=== PATIENT | male | born 1955 | race Caucasian/White ===

== ENCOUNTER 2024-02-05 12:20 | Emergency (ER) | payer OTHER, SELFPAY ==
[2024-02-05 12:22] VITALS: BP 135/80
[2024-02-05 12:56] VITALS: BP 145/91
[2024-02-05 13:00] VITALS: BP 138/73
--- NOTE | 2024-02-05 13:04 | ED.GENMED ---
History of Present Illness
General
Chief Complaint: Dizziness
Source: patient and family
Exam Limitations: none
Time Seen by Provider: 02/05/24 12:49
Nursing documentation reviewed up to this point in time: agreed with
Travel History
Have you had any contact with someone who has COVID-19?: No
Do you have any symptoms of coronavirus? Fever > 100 degrees, chills, cough, shortness of breath, sore throat, loss of taste or smell, muscle aches, or headache?: No
History of Present Illness
History of Present Illness:
Patient to ED with complaint of dizziness, head pain, vomiting, intermittent CP. Symptoms started on wednesday. No prior history of same. Denies any abdominal pain, fever/chills, diarrhea. Brought to ED by family for eval
Past History
Past History
ED Past Medical History: CAD, HTN, Hypercholesterolemia and NIDDM
ED Past Surgical History: None
Social History
Tobacco: Non-smoker
Alcohol: Occasional
Personal:
Living: with family
Employment: Employed
Family History
Family History: Other (Noncontributory)
Review of Systems
Review of Systems
Allergies reviewed?: Yes
All Other Systems: ROS reviewed and negative except as documented in HPI and ROS
Constitutional: Reports fatigue
EENT: Reports no symptoms
Respiratory: Reports no symptoms
Cardiac: Reports chest pain
ABD/GI: Reports nausea and vomiting
: Reports no symptoms
Musculoskeletal: Reports no symptoms
Skin: Reports no symptoms
Neurological: Reports weakness
Psychiatric: Reports no symptoms
Phy Exam
General Physical Exam
General Presentation: well appearing and no apparent distress
General age: appears stated age
General Skin: warm and dry
General Habitus: normal
General Mental: alert
Cardiovascular Exam
Cardiovascular Exam: regular rate/rhythm and no edema
Pulmonary Exam
Pulmonary Exam: lungs clear
Gastrointestinal Exam
Gastrointestinal Exam: normal bowel sounds, non tender, soft and no organomegaly
Neurological Exam
Neurological Exam: alert, oriented x3, CN II-XII intact, no motor deficits, no sensory deficits, speech normal and normal gait
Musculoskeletal Exam
Musculoskeletal Exam: full ROM and neuro vasc intact
Skin Exam
Skin Exam: normal color, warm/dry and no rash
Psychiatric Exam
Psychiatric Exam: normal mood/affect
Course
Orders/Labs/Results
Orders:
Orders
02/05/24 12:25
EKG [Electrocardiogram (*1)] Urgent
Reason for Study: Chest Pain
EKG- Treatment ONCE
02/05/24 13:03
0.9% Sodium Chloride 500 ml [Nss] 500 ml IV BOLUS
Ondansetron Injectable [Zofran] 4 mg IV NOW STA
02/05/24 13:06
CT Head W/o Iv Contrast Urgent
Comment:
Reason For Exam: pain, vomiting
02/05/24 13:08
Complete Blood Count/With Diff Urgent
Comprehensive Metabolic Panel Urgent
Lipase Urgent
Troponin I Urgent
Abnormal Lab Results
02/05/24
13:08
RBC 4.06 L 10^6/uL
(4.70-6.10)
Hgb 12.7 L g/dL
(13.0-18.0)
Hct 35.8 L %
(39.0-52.0)
MCH 31.3 H pg
(27.0-31.0)
Absolute Lymphs (auto) 1.0 L 10^3/uL
(1.2-3.4)
Creatinine 0.6 L mg/dL
(0.7-1.3)
Glucose 165 H mg/dl
(70-99)
02/05/24 13:08
02/05/24 13:08
Vital Signs
Initial and Last Documented VS:
Initial Vital Signs
Temp Pulse Resp BP Pulse Ox
98.3 F 76 16 135/80 97
02/05/24 12:22 02/05/24 12:22 02/05/24 12:22 02/05/24 12:22 02/05/24 12:22
Last Documented Vital Signs
Temp Pulse Resp BP Pulse Ox
98.3 F 61 18 121/70 97
02/05/24 12:22 02/05/24 14:45 02/05/24 14:45 02/05/24 14:31 02/05/24 14:45
*Critical Care Note
Total Time (30-74mins, 75-104mins- exclusive of procedures): Not Applicable
Update Note
Update Note:
Improved with IVF and zofran. Will discharge home. Given instructions on s/s to return to ED and he is agreeable to plan.
ED Attending Note
-
Portions of this chart may have been created with voice recognition software.� Occasional wrong word or��sound alike� substitutions may have occurred due to the inherent limitations of voice recognition software.
Discharge Plan
Departure
Patient Disposition: Home (Routine Discharge)
Date of Disposition: 02/05/24
Time of Disposition: 14:33
Patient with high blood pressure during this ER visit?: No
Condition: Good
Covid-19: Not Applicable
Discharge Problem:
Vomiting, Acute dehydration
Instructions: Dehydration in children, Dizziness, Acute Nausea and Vomiting
Prescriptions:
New
ondansetron 4 mg tablet,disintegrating
4 mg PO Q8H PRN (Reason: nausea and vomiting) 3 Days Qty: 10 0RF
No Action
aspirin 81 MG tablet,delayed release (DR/EC)
81 mg PO Daily
metformin 1,000 MG tablet
1,000 mg PO BID
atorvastatin 40 MG tablet
40 mg PO QPM Qty: 30 1RF
Rx Instructions:
Increase atorvastatin to 40 mg (four 10 mg tablets or one 40 mg tablet) once a night
metoprolol succinate 25 MG tablet extended release 24 hr
25 mg PO BID Qty: 60 1RF
Rx Instructions:
Increase Toprol XL (metoprolol succinate) to 25 mg twice a day
fenofibrate nanocrystallized 145 MG tablet
145 mg PO DAILY Qty: 30 1RF
lisinopril 10 MG tablet
10 mg PO DAILY Qty: 30 1RF
Rx Instructions:
Increase lisinopril to 10 mg once a day
Referrals:
Nikki Renee CRNP [Family Provider] - Follow up in 2-3 days
Activity Restrictions/Additional Instructions:
Return to the emergency department immediately for any changes in/worsening of your symptoms.
Interventions
Interventions:
*Risk Screen - Suicide Last Done: 02/05/24 12:22
*General Assessment Last Done: 02/05/24 12:22
*Neglect/Abuse Screening Last Done: 02/05/24 12:22
ED- Fall Risk Assessment Last Done: 02/05/24 15:09
*Nursing Disposition Last Done: 02/05/24 15:09
ED- Neurological Assessment Last Done: 02/05/24 13:03
Discharge Date and Time
Discharge Date/Time: 02/05/24 15:10
Print Language: EMIRATI
[2024-02-05] MEDS: ZOFRAN 4 MG IV (13:07)
[2024-02-05] MEDS: NSS 500 IV (13:07)
[2024-02-05 13:24] LABS: % Basophils 0.2 % (0-2); % Eosinophils 0.4 % (0-6); % Immature Granulocytes 0.2 % (0-0.5); % Lymphocytes 20.7 % (20.5-51.1); % Monocytes 6.1 % (1.7-9.3); % Neutrophils 72.4 % (42.2-75.2); Absolute Monocytes 0.3 10^3/uL (0.1-0.6); Absolute Neutrophils 3.6 10^3/uL (1.4-6.5); Hematocrit 35.8 % (39.0-52.0); Hemoglobin 12.7 g/dL (13.0-18.0); Mean Corp Hgb Conc. 35.5 g/dL (33.0-37.0); Mean Corpuscular Hgb 31.3 pg (27.0-31.0); Mean Corpuscular Volume 88.2 fL (80.0-94.0); Mean Platelet Volume 8.5 fL (7.4-10.4); Nucleated Red Blood Cells % 0 % (-); Platelet Count 156 10^3/uL (130-400); Red Blood Cell Count 4.06 10^6/uL (4.70-6.10); Red Cell Dist. Width 12.5 % (11.5-14.5); White Blood Cell Count 4.9 10^3/uL (4.8-10.8)
[2024-02-05 13:35] LABS: ALT (SGPT) 31 U/L (0-50); AST (SGOT) 30 U/L (17-59); Albumin 4.9 g/dl (3.5-5.0); Alkaline Phosphatase 59 U/L (38-126); Blood Urea Nitrogen 14 mg/dl (9-20); Calcium 9.8 mg/dl (8.4-10.2); Carbon Dioxide 25 mmol/L (22-30); Chloride 104 mmol/L (98-107); Glucose 165 mg/dl (70-99); Lipase 79 U/L (23-300); Sodium 136 mmol/L (135-145); Total Bilirubin 0.5 mg/dl (0.2-1.3); Total Protein 7.3 g/dl (6.3-8.2); eGFR > 60.00
[2024-02-05 13:47] LABS: Troponin I < 0.012 ng/ml
[2024-02-05 14:31] VITALS: BP 121/70
== END 2024-02-05 15:10 | disposition home or self-care (01) ==
LOC: EMR 12:20
PROVIDERS: Nurse Practitioner; EMERGENCY PHYSICIAN Emergency Medicine; FAMILY PHYSICIAN Nurse Practitioner Family
DX: R11.10 Vomiting, unspecified (principal); E86.0 Dehydration
CPT/HCPCS: 99285; 96374; 96361; 70450; 80053; 83690; 84484; 85025; 93005

== ENCOUNTER 2024-12-09 18:22 | Emergency (ER) | payer OTHER, SELFPAY ==
[2024-12-09 18:27] VITALS: BP 147/81
[2024-12-09 19:47] VITALS: BMI 29.3
[2024-12-09 19:52] VITALS: BP 138/72
--- NOTE | 2024-12-09 20:24 | ED.GENMED ---
History of Present Illness
General
Chief Complaint: DVT/Possible Blood Clot
Source: patient and family
Exam Limitations: none
Time Seen by Provider: 12/09/24 19:42
Nursing documentation reviewed up to this point in time: agreed with
History of Present Illness
History of Present Illness:
69-year-old male with past ministry of diabetes, CAD hypertension hyperlipidemia presenting to the emergency department today with concerns of a abrupt sharp pain when he was picking up something off the ground earlier today in his calf. Ongoing
discomfort to the area since. Has not of some swelling to the calf region. Denies any chest pain shortness of breath nausea vomiting numbness weakness.
Past History
Past History
ED Past Medical History: CAD, HTN, Hypercholesterolemia and NIDDM
ED Past Surgical History: None
Social History
Tobacco: Non-smoker
Alcohol: Occasional
Personal:
Living: with family
Employment: Employed
Family History
Family History: Other (Noncontributory)
Review of Systems
Review of Systems
Allergies reviewed?: Yes
All Other Systems: ROS reviewed and negative except as documented in HPI and ROS
Phy Exam
Physical Exam
Physical Exam:
GENERAL: Alert , in no apparent distress
EYE: pupils equal and reactive
NECK: Supple, no significant adenopathy.
ENT: o/p clr, mmm.
CARDIAC: Regular rate and rhythm .
LUNGS: Clear breath sounds bilaterally, no acute respiratory distress, no wheezes/rales/rhonchi
ABDOMEN: Soft, without focal tenderness, no r/g, no cvat
NEUROLOGICAL: Alert and oriented, no focal neuro deficits
SKIN: Warm and dry, skin intact.
MUSCULOSKELETAL: Mild swelling surrounding the gastrocnemius pain made worse with dorsiflexion of the ankle and squeezing of the gastroc. Achilles intact., well perfused.
PSYCH: Normal and appropriate interaction.
Course
Orders/Labs/Results
Orders:
Orders
12/09/24 18:30
US Legs, Right [US Periph Venous LOWER Ext RT] Urgent
Comment:
Reason For Exam: pain in calf
Vital Signs
Initial and Last Documented VS:
Initial Vital Signs
Temp Pulse Resp BP Pulse Ox
98.1 F 87 20 147/81 98
12/09/24 18:27 12/09/24 18:27 12/09/24 18:27 12/09/24 18:27 12/09/24 18:27
Last Documented Vital Signs
Temp Pulse Resp BP Pulse Ox
98.1 F 87 18 138/72 95
12/09/24 18:27 12/09/24 19:52 12/09/24 20:02 12/09/24 19:52 12/09/24 19:52
MDM/Problems Addressed
MDM/Problems Addressed:
69-year-old male presenting to the emergency department today with concerns of calf discomfort. Fountain a pop in his calf when he was lifting earlier today. Pain mainly to the gastrocnemius and with stretching of the gastrocnemius. Patient with
likely muscle strain. He also did have an ultrasound that showed a superficial nonocclusive clot in the saphenous. No indication for anticoagulation at this point. Patient recommended for rehabbing of his likely muscle injury and close outpatient
follow-up for repeated ultrasound and monitoring. Return precautions given.
*Critical Care Note
Total Time (30-74mins, 75-104mins- exclusive of procedures): Not Applicable
ED Attending Note
-
Portions of this chart may have been created with voice recognition software.� Occasional wrong word or��sound alike� substitutions may have occurred due to the inherent limitations of voice recognition software.
Discharge Plan
Departure
Patient Disposition: Home (Routine Discharge)
Date of Disposition: 12/09/24
Time of Disposition: 20:31
Patient with high blood pressure during this ER visit?: No
Condition: Good
Covid-19: Not Applicable
Discharge Problem:
Superficial thrombosis of leg, Strain of right calf muscle
Instructions: Muscle Strain (DC), Deep Vein Thrombosis (Blood Clots in the Legs) (DC)
Prescriptions:
No Action
aspirin 81 MG tablet,delayed release (DR/EC)
81 mg PO Daily
metformin 1,000 MG tablet
1,000 mg PO BID
atorvastatin 40 MG tablet
40 mg PO QPM Qty: 30 1RF
Rx Instructions:
Increase atorvastatin to 40 mg (four 10 mg tablets or one 40 mg tablet) once a night
metoprolol succinate 25 MG tablet extended release 24 hr
25 mg PO BID Qty: 60 1RF
Rx Instructions:
Increase Toprol XL (metoprolol succinate) to 25 mg twice a day
fenofibrate nanocrystallized 145 MG tablet
145 mg PO DAILY Qty: 30 1RF
lisinopril 10 MG tablet
10 mg PO DAILY Qty: 30 1RF
Rx Instructions:
Increase lisinopril to 10 mg once a day
ondansetron 4 mg tablet,disintegrating
4 mg PO Q8H PRN (Reason: nausea and vomiting) 3 Days Qty: 10 0RF
Referrals:
Joseph Gutierrez MD [Active] - Follow up in 10 days
Activity Restrictions/Additional Instructions:
You came to the emergency department today with concerns of leg swelling. You are found to have a superficial blood clot but no DVT. Please use warm compresses to your leg and follow-up closely as an outpatient. Return for any worsening, new or
concerning symptoms.
Interventions
Interventions:
*Risk Screen - Suicide Last Done: 12/09/24 19:47
*General Assessment Last Done: 12/09/24 18:27
*Neglect/Abuse Screening Last Done: 12/09/24 19:47
*ED- Fall Risk Assessment Last Done: 12/09/24 19:47
*ED COVID-19 Vaccine History Last Done: 12/09/24 19:47
ED- Cardiac Assessment Last Done: 12/09/24 19:47
ED-Musculoskeletal Assessment Last Done: 12/09/24 19:47
ED- Pulmonary Assessment Last Done: 12/09/24 19:47
ED-Peripheral Vascular Assessment Last Done: 12/09/24 19:47
ED-Skin Assessment Last Done: 12/09/24 19:47
Discharge Date and Time
Print Language: MALTESE
== END 2024-12-09 20:41 | disposition home or self-care (01) ==
LOC: EMR 18:22
PROVIDERS: EMERGENCY PHYSICIAN Emergency Medicine; FAMILY PHYSICIAN Nurse Practitioner Family
DX: I82.811 Embolism and thrombosis of superficial veins of right lower extremity (principal); S86.111A Strain of other muscle(s) and tendon(s) of posterior muscle group at lower leg level, right leg, initial encounter; X58.XXXA Exposure to other specified factors, initial encounter; E11.9 Type 2 diabetes mellitus without complications; I25.10 Atherosclerotic heart disease of native coronary artery without angina pectoris; E78.00 Pure hypercholesterolemia, unspecified; I10 Essential (primary) hypertension
CPT/HCPCS: 99284; 93971

== ENCOUNTER 2024-12-14 17:33 | Emergency (ER) | payer OTHER, SELFPAY ==
[2024-12-14 17:34] VITALS: BP 174/96
--- NOTE | 2024-12-14 17:54 | ED.GENMED ---
History of Present Illness
<Lisandra Garcia PA-C - Last Filed: 12/14/24 20:30>
General
Chief Complaint: Swallowing Problem
Source: patient
Exam Limitations: none
Time Seen by Provider: 12/14/24 17:44
Nursing documentation reviewed up to this point in time: agreed with
History of Present Illness
History of Present Illness:
This is a 69-year-old male past medical history of coronary disease, hypertension, hyperlipidemia presents emergency department today with concerns of globus sensation in his throat. Patient reports that around 45 minutes ago, he was eating a
sandwich when he went to swallow and felt a piece of food get stuck in his throat. Patient reports that he tried to take another bite and subsequently had some gagging and vomiting mixed with specs of blood. He also has throat pain. He denies chest
pain, shortness of breath, abdominal pain. He denies history of cart attendant illness. He does not follow with a GI doctor. He denies any shortness of breath.
Past History
<Lisandra Garcia PA-C - Last Filed: 12/14/24 20:30>
Past History
ED Past Medical History: CAD, HTN, Hypercholesterolemia and NIDDM
ED Past Surgical History: None
Social History
Tobacco: Non-smoker
Alcohol: Occasional
Personal:
Living: with family
Employment: Employed
Family History
Family History: Other (Noncontributory)
Review of Systems
<Lisandra Garcia PA-C - Last Filed: 12/14/24 20:30>
Review of Systems
All Other Systems: ROS reviewed and negative except as documented in HPI and ROS
Phy Exam
<Lisandra Garcia PA-C - Last Filed: 12/14/24 20:30>
Physical Exam
Physical Exam:
General: Patient is well appearing and in no acute distress; non-toxic
Skin: Warm and dry, no rashes or lesions
Head: Normocephalic, atraumatic
Eyes: Sclera non-icteric. EOMs intact.
Throat: Uvula midline, no pharyngeal erythema
Neck: No cervical lymphadenopathy
Cardiac: Regular rate and rhythm, no murmurs, no tenderness palpation of the external chest wall
Pulm: Normal respiratory effort, no wheezes, rales, or rhonchi
Abdomen: No abdominal tenderness to palpation, no epigastric tenderness
Neuro: CN II-XII intact, no focal neurologic deficits.
Psychiatric: Appropriate mood and affect.
Course
<Lisandra Garcia PA-C - Last Filed: 12/14/24 20:30>
Orders/Labs/Results
Orders:
Orders
12/14/24 18:01
Complete Blood Count/With Diff Urgent
Comprehensive Metabolic Panel Urgent
12/14/24 18:02
Glucagon [GlucaGen] 1 mg Sterile Water [Sterile Water For Injection] 0 ml Syringe [Syringe Non-Pump] 0 ml IV NOW
12/14/24 18:09
Glucagon [GlucaGen] 1 mg IV NOW STA
12/14/24 18:37
Glucagon [GlucaGen] 1 mg IV NOW STA
12/14/24 18:58
Mag Hydrox/Al Hydrox/Simeth [Maalox] 30 ml Phenobarb/Hyoscy/Atropine/Scop [] 10 ml PO NOW
12/14/24 19:06
Mag Hydrox/Al Hydrox/Simeth [Maalox] 30 ml .ROUTE .STK-MED ONE
Phenobarb/Hyoscy/Atropine/Scop [] 10 ml .ROUTE .STK-MED ONE
Abnormal Lab Results
12/14/24
18:01
RBC 4.02 L 10^6/uL
(4.70-6.10)
Hgb 12.7 L g/dL
(13.0-18.0)
Hct 36.6 L %
(39.0-52.0)
MCH 31.6 H pg
(27.0-31.0)
Glucose 151 H mg/dl
(70-99)
Albumin 5.2 H g/dl
(3.5-5.0)
12/14/24 18:01
12/14/24 18:01
Vital Signs
Initial and Last Documented VS:
Initial Vital Signs
Temp Pulse Resp BP Pulse Ox
98.2 F 102 18 174/96 95
12/14/24 17:34 12/14/24 17:34 12/14/24 17:34 12/14/24 17:34 12/14/24 17:34
Last Documented Vital Signs
Temp Pulse Resp BP Pulse Ox
98.2 F 102 18 144/86 96
12/14/24 17:34 12/14/24 17:34 12/14/24 17:34 12/14/24 18:00 12/14/24 19:00
<Amparo Robison MD - Last Filed: 12/14/24 18:51>
Orders/Labs/Results
Orders:
Orders
12/14/24 18:01
Complete Blood Count/With Diff Urgent
Comprehensive Metabolic Panel Urgent
12/14/24 18:02
Glucagon [GlucaGen] 1 mg Sterile Water [Sterile Water For Injection] 0 ml Syringe [Syringe Non-Pump] 0 ml IV NOW
12/14/24 18:09
Glucagon [GlucaGen] 1 mg IV NOW STA
12/14/24 18:37
Glucagon [GlucaGen] 1 mg IV NOW STA
12/14/24 18:58
Mag Hydrox/Al Hydrox/Simeth [Maalox] 30 ml Phenobarb/Hyoscy/Atropine/Scop [] 10 ml PO NOW
12/14/24 19:06
Mag Hydrox/Al Hydrox/Simeth [Maalox] 30 ml .ROUTE .STK-MED ONE
Phenobarb/Hyoscy/Atropine/Scop [] 10 ml .ROUTE .STK-MED ONE
Abnormal Lab Results
12/14/24
18:01
RBC 4.02 L 10^6/uL
(4.70-6.10)
Hgb 12.7 L g/dL
(13.0-18.0)
Hct 36.6 L %
(39.0-52.0)
MCH 31.6 H pg
(27.0-31.0)
Glucose 151 H mg/dl
(70-99)
Albumin 5.2 H g/dl
(3.5-5.0)
12/14/24 18:01
12/14/24 18:01
Vital Signs
Initial and Last Documented VS:
Initial Vital Signs
Temp Pulse Resp BP Pulse Ox
98.2 F 102 18 174/96 95
12/14/24 17:34 12/14/24 17:34 12/14/24 17:34 12/14/24 17:34 12/14/24 17:34
Last Documented Vital Signs
Temp Pulse Resp BP Pulse Ox
98.2 F 102 18 144/86 96
12/14/24 17:34 12/14/24 17:34 12/14/24 17:34 12/14/24 18:00 12/14/24 19:00
Shekharlt;Lisandra Garcia PA-C - Last Filed: 12/14/24 20:30>
MDM/Problems Addressed
Differential Diagnosis Includes:
Differentials include food bolus impaction, esophagitis, GERD
MDM/Problems Addressed:
69-year-old male presents emergency department today with concerns of potential food bolus impaction. He was eating when he felt the piece of food get stuck. He is able to tolerate liquids however. He was given a dose of glucagon here in the
emergency department. Patient states that he still felt some pain and discomfort in his throat. He subsequently given another dose of glucagon. Later upon reassessment, patient states that discomfort has improved. Did give patient some food to
eat and he is able to demonstrate that he was able to eat and swallow the food without any difficulty. Patient states he no longer feels as much of a bolus sensation now does feel some irritation in his throat. Patient given a GI cocktail to help
soothe the lining of the esophagus. Suspect this some irritation from both but the obstruction has passed. Advised patient follow-up with gastroenterology and to continue monitor his symptoms. Patient stable for discharge.
Chronic conditions affecting care:
Coronary artery disease, hypertension, hyperlipidemia
<Lisandra Garcia PA-C - Last Filed: 12/14/24 20:30>
*Pulse Oximetry
Patient hypoxic: no
*Critical Care Note
Total Time (30-74mins, 75-104mins- exclusive of procedures): Not Applicable
Data Reviewed
Review of Other/Old Records Reveals: Records (Reviewed ER physician documentation from 12/09/2029 patient seen for calf pain diagnosis strain of his calf)
Source: patient and records
<Lisandra Garcia PA-C - Last Filed: 12/14/24 20:30>
Patient Management
Escalation/DeEscalation of care consider admission/obs:
Admit not indicated, patient stable for discharge
ED Attending Note
<Lisandra Garcia PA-C - Last Filed: 12/14/24 20:30>
-
Portions of this chart may have been created with voice recognition software.� Occasional wrong word or��sound alike� substitutions may have occurred due to the inherent limitations of voice recognition software.
<Amparo Robison MD - Last Filed: 12/14/24 18:51>
ED Attending Note
Patient seen and examined by attending physician: Yes
I performed the substantive portion of visit, reviewed & personally made and approve the management plan that is documented in note by myself or CLARISA.: Yes
ED Attending Note:
69-year-old male who was eating a meal that included meat approximate hour ago and felt like meat got stuck in his throat. He had some vomiting and now still feels like something is there. He denies airway symptoms such as dyspnea, swelling, etc.
On exam, patient overall well-appearing, no drooling, voice clear, no tachypnea or respiratory distress, no stridor. Patient given glucagon will reexamine.
Discharge Plan
Departure
Patient Disposition: Home (Routine Discharge)
Date of Disposition: 12/14/24
Time of Disposition: 19:36
Patient with high blood pressure during this ER visit?: Yes
Condition: Good
Discharge Problem:
Esophagitis
Instructions: Dysphagia (DC), Food Obstruction, BLOOD PRESSURE
Prescriptions:
No Action
aspirin 81 MG tablet,delayed release (DR/EC)
81 mg PO Daily
metformin 1,000 MG tablet
1,000 mg PO BID
atorvastatin 40 MG tablet
40 mg PO QPM Qty: 30 1RF
Rx Instructions:
Increase atorvastatin to 40 mg (four 10 mg tablets or one 40 mg tablet) once a night
metoprolol succinate 25 MG tablet extended release 24 hr
25 mg PO BID Qty: 60 1RF
Rx Instructions:
Increase Toprol XL (metoprolol succinate) to 25 mg twice a day
fenofibrate nanocrystallized 145 MG tablet
145 mg PO DAILY Qty: 30 1RF
lisinopril 10 MG tablet
10 mg PO DAILY Qty: 30 1RF
Rx Instructions:
Increase lisinopril to 10 mg once a day
ondansetron 4 mg tablet,disintegrating
4 mg PO Q8H PRN (Reason: nausea and vomiting) 3 Days Qty: 10 0RF
Referrals:
NONE,* [Active] -
Ambar Perez MD [Active] - Call in 1-3 days for appt
Activity Restrictions/Additional Instructions:
Please call the attached number to schedule an appointment to see gastroenterology.
Please follow up with your primary care provider.
PLEASE RETURN EMERGENCY DEPARTMENT SHOULD YOU DEVELOP CHEST PAIN, DIFFICULTY SWALLOWING, INABILITY TOLERATE ORAL INTAKE, INTRACTABLE NAUSEA OR VOMITING, ABDOMINAL PAIN, FEVERS OR CHILLS, DARK STOOLS, RECTAL BLEEDING, OR ANY OTHER SIGNS OR SYMPTOMS
WORRISOME TO YOU.
Interventions
Interventions:
*Risk Screen - Suicide Last Done: 12/14/24 17:34
*General Assessment Last Done: 12/14/24 17:34
*Neglect/Abuse Screening Last Done: 12/14/24 17:56
*ED- Fall Risk Assessment Last Done: 12/14/24 17:56
*ED COVID-19 Vaccine History Last Done: 12/14/24 17:34
*Nursing Disposition Last Done: 12/14/24 19:56
ED-EENT Assessment Last Done: 12/14/24 17:57
DZ-Haqhsz-Zoyjioduub Assessment Last Done: 12/14/24 17:57
ED- Pulmonary Assessment Last Done: 12/14/24 17:57
ED- Neurological Assessment Last Done: 12/14/24 17:57
ED Swallowing Screen Last Done: 12/14/24 17:59
Discharge Date and Time
Discharge Date/Time: 12/14/24 19:56
Print Language: CAMBODIAN
[2024-12-14 18:00] VITALS: BP 144/86
[2024-12-14 18:11] LABS: % Basophils 0.4 % (0-2); % Immature Granulocytes 0.2 % (0-0.5); % Lymphocytes 34.2 % (20.5-51.1); % Monocytes 8.4 % (1.7-9.3); % Neutrophils 54.8 % (42.2-75.2); Absolute Eosinophils 0.1 10^3/uL (0-0.7); Absolute Lymphocytes 1.8 10^3/uL (1.2-3.4); Absolute Monocytes 0.4 10^3/uL (0.1-0.6); Absolute Neutrophils 2.8 10^3/uL (1.4-6.5); Hematocrit 36.6 % (39.0-52.0); Hemoglobin 12.7 g/dL (13.0-18.0); Mean Corp Hgb Conc. 34.7 g/dL (33.0-37.0); Mean Corpuscular Hgb 31.6 pg (27.0-31.0); Mean Platelet Volume 8.2 fL (7.4-10.4); Nucleated Red Blood Cells % 0 % (-); Platelet Count 162 10^3/uL (130-400); Red Blood Cell Count 4.02 10^6/uL (4.70-6.10); Red Cell Dist. Width 13.1 % (11.5-14.5); White Blood Cell Count 5.1 10^3/uL (4.8-10.8)
[2024-12-14] MEDS: GlucaGen 1 MG IV ×2 (18:14→18:41)
[2024-12-14 18:38] LABS: ALT (SGPT) 25 U/L (0-50); AST (SGOT) 26 U/L (17-59); Albumin 5.2 g/dl (3.5-5.0); Alkaline Phosphatase 54 U/L (38-126); Blood Urea Nitrogen 20 mg/dl (9-20); Calcium 10.2 mg/dl (8.4-10.2); Carbon Dioxide 22 mmol/L (22-30); Chloride 105 mmol/L (98-107); Glucose 151 mg/dl (70-99); Potassium 4.5 mmol/L (3.5-5.1); Sodium 140 mmol/L (135-145); Total Bilirubin 0.5 mg/dl (0.2-1.3); Total Protein 7.7 g/dl (6.3-8.2); eGFR > 60.00
[2024-12-14] MEDS: MAALOX 40 PO (19:07)
== END 2024-12-14 19:56 | disposition home or self-care (01) ==
LOC: EMR 17:33
PROVIDERS: Physician Assistant; EMERGENCY PHYSICIAN Emergency Medicine; FAMILY PHYSICIAN Nurse Practitioner Family
DX: K20.90 Esophagitis, unspecified without bleeding (principal); I10 Essential (primary) hypertension; E11.9 Type 2 diabetes mellitus without complications; E78.00 Pure hypercholesterolemia, unspecified; I25.10 Atherosclerotic heart disease of native coronary artery without angina pectoris
CPT/HCPCS: 99283; 96374; 96376; 80053; 85025; J1610

== ENCOUNTER 2025-09-20 17:26 | Observation (INO) | payer OTHER, SELFPAY ==
[2025-09-20 14:46] VITALS: BP 148/82
[2025-09-20 15:00] VITALS: BP 179/77
[2025-09-20 15:01] LABS: Glucose - Point of Care 154 mg/dl (70-99)
[2025-09-20 15:02] VITALS: BMI 28.3
[2025-09-20 15:25] LABS: Hematocrit 39.2 % (39.0-52.0); Hemoglobin 13.3 g/dL (13.0-18.0); Mean Corp Hgb Conc. 33.9 g/dL (33.0-37.0); Mean Corpuscular Volume 88.1 fL (80.0-94.0); Nucleated Red Blood Cells % 0 % (-); Platelet Count 143 10^3/uL (130-400); Red Cell Dist. Width 13.8 % (11.5-14.5)
--- NOTE | 2025-09-20 15:40 | CON.NEURO4 ---
Consultation - Neurology 4
-
CONSULTING PHYSICIAN: Dr. Edwar Luther
REFERRING PHYSICIAN: Dr. Iliana Fonseca
DICTATED BY: Dr. Edwar Luther
DATE/TIME OF REQUEST: 09/20/2025
DATE/TIME OF CONSULTATION: 09/20/2025
Reason for Consultation: Stroke alert
ASSESSMENT AND PLAN:
The patient is a 69 years old male who presented to the hospital because he he had some visual problem which he explains as seeing four images of a single object when he would look towards the left side. Also the patient had difficulty speaking at
that time and was unsteady on his feet. The patient's symptoms started at around 1:15 p.m. today and they resolved in about 20 minutes. When the patient was seen in the ER his symptoms had resolved. The patient denied any speech difficulty,
facial droop, focal weakness and numbness of arms or legs, when he was seen in the ED. The patient was on aspirin 81 mg daily and atorvastatin 40 mg daily at home. The patient was not a candidate for TNK as his symptoms had resolved and NIHSS = 0.
He is not a candidate for IAT as a CTA of the head and neck does not show a large vessel occlusion.
. CT of the head does not show any acute intracranial abnormality.
. CTA of the head and neck did not show a large vessel occlusion.
. MRI of the brain without contrast
. Echocardiogram
. Admit to regular floor
. Aspirin 81 mg daily and Plavix 75 mg daily
. Atorvastatin 40 mg daily
. LDL goal of <70.
. PT/OT evaluation.
. DVT prophylaxis
History of Present Illness:
The patient is a 69 years old male who presented to the hospital because he he had some visual problem which he explains as seeing four images of a single object when he would look towards the left side. Also the patient had difficulty speaking at
that time and was unsteady on his feet. The patient's symptoms started at around 1:15 p.m. today and they resolved in about 20 minutes. When the patient was seen in the ER his symptoms had resolved. The patient denied any speech difficulty,
facial droop, focal weakness and numbness of arms or legs, when he was seen in the ED. The patient was on aspirin 81 mg daily and atorvastatin 40 mg daily at home. The patient was not a candidate for TNK as his symptoms had resolved and NIHSS = 0.
He is not a candidate for IAT as a CTA of the head and neck does not show a large vessel occlusion.
The patient's son was present at the bedside to provide history along with the patient.
Past Medical History:
DM
HTN
Review of Systems:
The 10 point review systems were negative aside from as given the history of present illness above.
Neurologic Examination:
Alert and oriented x 3, the patient knows his age and the month of the year
Speech is clear
The cranial nerves II to XII are grossly intact, the visual tinoco are grossly full to confrontation bilaterally
Motor strength is grossly 5/5 bilaterally in upper and lower extremities
The sensation is grossly intact
The cerebellar examination does not show limb ataxia
Vital Signs and Labs
-
Vital Signs and Labs:
Vital Signs
Temp Pulse Resp BP Pulse Ox
36.5 C 75 16 179/77 94
09/20/25 14:46 09/20/25 15:00 09/20/25 15:00 09/20/25 15:00 09/20/25 15:46
Lab Results
09/20/25 15:19
09/20/25 15:19
Sodium 141 mmol/L (135-145) 09/20/25 15:19
Potassium 4.4 mmol/L (3.5-5.1) 09/20/25 15:19
BUN 14 mg/dl (9-20) 09/20/25 15:19
Glucose 149 mg/dl (70-99) H 09/20/25 15:19
Calcium 10.0 mg/dl (8.4-10.2) 09/20/25 15:19
Medications
-
Home Medications
�Medication �Instructions �Recorded
aspirin 81 mg tablet,delayed 81 mg PO Daily Blood clot 11/10/21
release prevention/tx
metformin 1,000 mg tablet 1,000 mg PO BID Diabetes 11/10/21
fenofibrate nanocrystallized 145 145 mg PO DAILY High cholesterol 11/11/21
mg tablet #30 tabs
lisinopril 10 mg tablet 10 mg PO DAILY Blood pressure #30 11/11/21
tabs
amlodipine 2.5 mg tablet 2.5 mg PO DAILY 09/20/25
ascorbic acid (vitamin C) 1,000 mg 1,000 mg PO DAILY 09/20/25
tablet (Vitamin C)
atorvastatin 40 mg tablet 40 mg PO DAILY High cholesterol 09/20/25
famotidine 20 mg tablet 20 mg PO BID 09/20/25
glipizide 5 mg tablet 5 mg PO BID 09/20/25
isosorbide mononitrate 30 mg 30 mg PO DAILY 09/20/25
tablet,extended release 24 hr
metoprolol succinate 25 mg 25 mg PO DAILY Blood pressure 09/20/25
tablet,extended release 24 hr
[2025-09-20 15:42] LABS: ALT (SGPT) 28 U/L (0-50); AST (SGOT) 31 U/L (17-59); Albumin 5.1 g/dl (3.5-5.0); Alkaline Phosphatase 55 U/L (38-126); Blood Urea Nitrogen 14 mg/dl (9-20); Calcium 10.0 mg/dl (8.4-10.2); Carbon Dioxide 24 mmol/L (22-30); Chloride 107 mmol/L (98-107); Estimated Creatinine Clearance 106 ml/min; Glucose 149 mg/dl (70-99); Potassium 4.4 mmol/L (3.5-5.1); Sodium 141 mmol/L (135-145); Total Protein 8.0 g/dl (6.3-8.2); eGFR > 60.00
[2025-09-20 15:53] LABS: Troponin I < 0.012 ng/ml
[2025-09-20 16:00] VITALS: BP 132/60
--- NOTE | 2025-09-20 16:37 | HPS.HSE ---
Family Physician
-
Family Physician: NATHANIEL Claudio
Chief Complaint
-
Lateral eye deviation, visual changes, dizziness
History of Present Illness
69 y/o M with PMHx:
s/p TAVR
DM2
Essential HTN
CAD
Who presents with multiple chief complaints. Shortly before arrival to the ER the patient was sitting on a couch. His left eye deviated laterally for about 15 to 30 seconds. He had associated lightheadedness as well as diplopia. He reported that
he saw 4 images of his son in his visual tinoco. He had some expressive aphasia at the time. He then had sharp, sternal chest pain. Denies any diaphoresis or syncope. Around the time he arrived to the ER his symptoms resolved. He has no other
acute complaints. He has recently been in his usual state of health.
Medical History
Past Medical History
Past Medical History: Reports Other (as per HPI)
Past Surgical History: Reports Other (N/A)
Social History
Tobacco: Non-smoker
Alcohol: None
Drug: None
Family History
Family History: Not pertinent
Allergies / Home Medications
Allergies reflects when Allergies were last updated in [employer].
Home Medications with original date entered in [employer]
Allergy/Medication List:
Allergies
Allergy/AdvReac Type Severity Reaction Status Date / Time
No Known Allergies Allergy Verified 09/20/25 15:03
Home Medications
aspirin 81 mg tablet,delayed release 81 mg PO Daily Blood clot prevention/tx 11/10/21
metformin 1,000 mg tablet 1,000 mg PO BID Diabetes 11/10/21
fenofibrate nanocrystallized 145 mg tablet 145 mg PO DAILY High cholesterol #30 tabs 11/11/21
lisinopril 10 mg tablet 10 mg PO DAILY Blood pressure #30 tabs 11/11/21
amlodipine 2.5 mg tablet 2.5 mg PO DAILY 09/20/25
ascorbic acid (vitamin C) 1,000 mg tablet (Vitamin C) 1,000 mg PO DAILY 09/20/25
atorvastatin 40 mg tablet 40 mg PO DAILY High cholesterol 09/20/25
famotidine 20 mg tablet 20 mg PO BID 09/20/25
glipizide 5 mg tablet 5 mg PO BID 09/20/25
isosorbide mononitrate 30 mg tablet,extended release 24 hr 30 mg PO DAILY 09/20/25
metoprolol succinate 25 mg tablet,extended release 24 hr 25 mg PO DAILY Blood pressure 09/20/25
Review of Systems
-
History Source: Patient
A 12 point ROS was completed and negative except as noted: Yes
Physical Exam
Vital Signs
Vital Signs
Temp Pulse Resp BP Pulse Ox
97.7 F 79 17 132/60 94
09/20/25 14:46 09/20/25 16:15 09/20/25 16:15 09/20/25 16:00 09/20/25 15:46
Physical Exam
General: Other (.)
Laboratory Results
-
09/20/25 15:19
09/20/25 15:19
Laboratory Results
Total Bilirubin 0.3 mg/dl (0.2-1.3) 09/20/25 15:19
AST 31 U/L (17-59) 09/20/25 15:19
ALT 28 U/L (0-50) 09/20/25 15:19
Alkaline Phosphatase 55 U/L (38-126) 09/20/25 15:19
Troponin I < 0.012 ng/ml 09/20/25 15:19
Impression/Plan
-
Gen: NAD, AAOx3.
Eyes: EOMI, PERRLA, no scleral icterus.
Neck: supple.
CV: RRR, +S1/S2, no m/r/g.
Resp: CTAB, no rales, wheezes, or rhonchi.
Abd: +BS, soft, NT, ND
Skin: No rashes.
Neuro: CN 2-12 intact, non-focal.
Psych: Normal mood and affect.
CT brain: No acute intracranial abnormality noted.
CTA head/neck: Cervical carotid calcified plaque without associated hemodynamically significant stenosis, occlusion, or dissection. The cervical vertebral arteries are patent. Cavernous ICA calcified plaque. No [place] region aneurysm or
stenosis. No cerebral artery aneurysm, significant plaque, stenosis, thrombus, or occlusion.
Stroke-like symptoms:
-Presented with dizziness and visual changes
-neuro saw in consultation and will follow
-imaging above
-symptoms have resolved, no TNK given
-tele
-a1c, FLP
-check MRI brain
-cont ASA/statin
-start Plavix
Chest pain:
-reported sharp, sternal CP, atypical
-ECG on admission without acute ischemic changes (read by me), SR @ 82
-trend trops
-monitor on tele
Other problems:
DM2: check a1c, hold home metformin/Glipizide, SSI/accuchecks/diabetic diet
Essential HTN: cont BB/Imdur
CAD: cont ASA/statin/BB
FULL/Lovenox
[2025-09-20] MEDS: PLAVIX 75 MG PO (17:00)
--- NOTE | 2025-09-20 17:04 | ED.GENMED ---
History of Present Illness
General
Chief Complaint: Dizziness
Source: patient and family (Son who is at the bedside)
Exam Limitations: none
Time Seen by Provider: 09/20/25 15:00
Nursing documentation reviewed up to this point in time: agreed with
History of Present Illness
History of Present Illness:
The patient is a 69-year-old man with a past medical history of high blood pressure, hyperlipidemia and recent TAVR procedure who was witnessed by his son 40 minutes prior to arrival to have abnormalities of the left eye. His son reports that his
left eye seemed deviated to the left ' and was stuck there'. The patient reports that he saw ' 4 images' during that time and could not move his left eye. Additionally, patient reports feeling dizzy and had difficulty walking. He reports that
after 20 seconds, he was able to move his left eye but he saw blurry vision out of the left eye. His son reports that during that time he also seemed slow to respond and ' out of it'. The patient reports that his vision now feels normal. He
denies headache. He denies weakness and numbness. His son reports he is speaking as normal. On initial arrival to the ED, the patient had been still slow to respond to questions and had some difficulty speaking so stroke alert called.
If applicable-neuro sx onset
Onset of symptoms known: Yes
Date of onset of symptoms: 09/20/25
Time of onset of symptoms: 14:15
Date last time pt seen normal: 09/20/25
Time last time pt seen normal: 14:14
Translation Services
Preferred Language: Nepali
[employer] service via: In Person (Son translates for patient in Nepali)
Past History
Past History
ED Past Medical History: CAD, HTN, Hypercholesterolemia and NIDDM
ED Past Surgical History: Cardiac
Social History
Tobacco: Non-smoker
Alcohol: Occasional
Drug: None
Personal:
Living: with family
Employment: Employed
Family History
Family History: Other (Noncontributory)
Review of Systems
Review of Systems
Allergies reviewed?: Yes
Other source history: family
All Other Systems: ROS reviewed and negative except as documented in HPI and ROS
Constitutional: Reports fatigue
EENT: Reports other
Respiratory: Reports no symptoms
Cardiac: Reports no symptoms
ABD/GI: Reports no symptoms
: Reports no symptoms
Musculoskeletal: Reports no symptoms
Skin: Reports no symptoms
Neurological: Reports dizzy
Endocrine: Reports no symptoms
Hematologic/Lymphatic: Reports no symptoms
Psychiatric: Reports no symptoms
Phy Exam
Physical Exam
Physical Exam:
Physical Exam
General: no apparent distress, not acutely ill
Neck: supple. no meningeal signs. normal psoterior pharynx
Heart: s1/s2 regular rate and rhythm, no murmur. equal radial pulses.
Lungs: no acute respiratory distress. clear bilaterally
Abdomen: normal bowel sounds. not tender. no CVAT
Neuro: alert and oriented. no focal neurological deficits. 5 out of 5 strength in all extremities without drift. [id number]. Son says speech sounds completely normal. Visual tinoco intact
Skin: no rash
Psychiatric: well kept. interactive and cooperative
Extremities: no edema. no calf tenderness. negative homans. good distal pulses
Course
Orders/Labs/Results
Orders:
Orders
09/20/25 15:16
CT HEAD STROKE ALERT W/o Cont Urgent
Comment:
Reason For Exam: visual changes, dizziness
CT HEAD/NECK ANG STROKE ALERT Urgent
Comment:
Reason For Exam: visual changes, dizziness
09/20/25 15:17
Electrocardiogram (*1) Stat
Reason for Study: Other
Other Reason for Exam: neuro symptoms
EKG- Treatment ONCE
09/20/25 15:19
Complete Blood Count/With Diff Urgent
Comprehensive Metabolic Panel Urgent
Troponin I Urgent
09/20/25 16:55
Clopidogrel Bisulfate [Plavix] 75 mg PO NOW STA
09/20/25 17:01
Admit/Transfer Patient As Directed
Co-Sign Provider:
Level of Care: Observation services
Assign to:: Telemetry
Physician / Group: Faith
Diagnosis: stroke-like symptoms
Reason for Telemetry: CVA/TIA
Date to Stop Telemetry: 09/23/25
Time to Stop Telemetry: 11:00
PRN Pain Medication Management As Directed
May give lesser potent ordered pain med per pt: Yes
preference::
Protocol:: Medication orders for pain may be administered in a
manner that supports deferring to patient preference
when the pt is:
- Requesting an ordered lesser potent pain medication.
Least to most potent pain medications are defined
as: acetaminophen < NSAID < tramadol < opioids
(morphine, oxycodone, hydromorphone).
- Requesting a lesser dose of the same medication IF
ORDERED.
- Requesting a less intrusive route of administration
if both routes are prescribed by the provider (PO <
IV).
09/20/25 17:02
Code Status As Directed
Resuscitation Status: Full Code
09/23/25 11:00
DC Protocol for Telemetry ONCE
Abnormal Lab Results
09/20/25 09/20/25
14:59 15:19
WBC 4.6 L 10^3/uL
(4.8-10.8)
RBC 4.45 L 10^6/uL
(4.70-6.10)
Monocytes % 11.8 H %
(1.7-9.3)
Glucose 149 H mg/dl
(70-99)
Albumin 5.1 H g/dl
(3.5-5.0)
POC Glucose 154 H mg/dl
(70-99)
09/20/25 15:19
09/20/25 15:19
Vital Signs
Initial and Last Documented VS:
Initial Vital Signs
Temp Pulse Resp BP Pulse Ox
97.7 F 87 18 148/82 97
09/20/25 14:46 09/20/25 14:46 09/20/25 14:46 09/20/25 14:46 09/20/25 14:46
Last Documented Vital Signs
Temp Pulse Resp BP Pulse Ox
97.7 F 86 19 132/60 94
09/20/25 14:46 09/20/25 16:30 09/20/25 16:30 09/20/25 16:00 09/20/25 17:08
MDM/Problems Addressed
Differential Diagnosis Includes:
Acute CVA, acute TIA, acute vertigo
MDM/Problems Addressed:
Patient presents with acute visual changes and dizziness which are now gone
Chronic conditions affecting care: HTN
Acute Exacerbation and/or Progression of Chronic Illness: HTN
*Radiology
Radiology exam reviewed: radiology read reviewed
*Pulse Oximetry
SaO2: 94
Oxygen Mode of Delivery: Room air
Patient hypoxic: no
*EKG
Interpreted by ED Provider?: Yes
Interpretation: abnormal
Comparison EKG: no changes
Rate: normal
Rhythm: sinus
[place]: normal axis
Interval: normal interval
QRS Pattern: normal QRS
Ischemia: non-specific ST changes
*Uat Tester Interpretation
Rate: normal
Interpretation: normal
Rhythm: sinus
*Critical Care Note
Total Time (30-74mins, 75-104mins- exclusive of procedures): 42 minutes
comment:
42 minutes of critical care given to the patient including frequent reassessments of his neurological status, speaking to his son, speaking to the hospitalist as well as neurology
Data Reviewed
Source: patient and family
Patient Management
Social determinants of health affecting care: Living situation and Strong social support
Discussion with other providers: Hospitalist and Other (Neurology on-call)
Update Note
Update Note:
Patient is not a candidate for thrombolytics given that his NIH stroke score is 0 and all symptoms are resolved
ED Attending Note
-
Portions of this chart may have been created with voice recognition software.� Occasional wrong word or��sound alike� substitutions may have occurred due to the inherent limitations of voice recognition software.
Discharge Plan
Departure
Patient Disposition: Admit
Date of Disposition: 09/20/25
Time of Disposition: 17:14
Admit to: Telemetry
Presentation/result/management discussed w/ accepting MD/DO: Hospitalist
Patient with high blood pressure during this ER visit?: Yes
Condition: Good
Covid-19: Not Applicable
Discharge Problem:
Acute TIA
Prescriptions:
No Action
aspirin 81 MG tablet,delayed release (DR/EC)
81 mg PO Daily
metformin 1,000 MG tablet
1,000 mg PO BID
fenofibrate nanocrystallized 145 MG tablet
145 mg PO DAILY Qty: 30 1RF
lisinopril 10 MG tablet
10 mg PO DAILY Qty: 30 1RF
isosorbide mononitrate 30 mg Tablet Extended Release 24 Hr
30 mg PO DAILY
amlodipine 2.5 mg Tablet
2.5 mg PO DAILY
famotidine 20 mg Tablet
20 mg PO BID
glipizide 5 mg Tablet
5 mg PO BID
atorvastatin 40 MG tablet
40 mg PO DAILY
metoprolol succinate 25 MG tablet extended release 24 hr
25 mg PO DAILY
ascorbic acid (vitamin C) [Vitamin C] 1,000 mg Tablet
1,000 mg PO DAILY
Referrals:
Nikki Renee CRNP [Family Provider]
Interventions
Interventions:
*General Assessment Last Done: 09/20/25 15:05
*Neglect/Abuse Screening Last Done: 09/20/25 15:04
*ED COVID-19 Vaccine History Last Done: 09/20/25 15:05
*ED Influenza Vaccine History Last Done: 09/20/25 15:05
[facility] Fall Risk Assessment Tool Last Done: 09/20/25 15:03
*Risk Screen - Suicide (C-SSRS) Last Done: 09/20/25 15:04
ED- Neurological Assessment Last Done: 09/20/25 15:46
ED- Cardiac Assessment Last Done: 09/20/25 15:46
ED Swallowing Screen Last Done: 09/20/25 15:46
Discharge Date and Time
Print Language: [place]
--- NOTE | 2025-09-20 18:02 | EDCM ---
Reviewed chart, met with pt and son bedside in ED. Lives with his in [address], no JACINTA.
Independent in ADLs, personal care and ambulation at baseline. No assistive devices.
PMH includes DM, HTN and CAD
PATEL reviewed and signed, copy given to son.
Confirms prescription coverage
PCP: Nikki Renee
Pharmacy: [facility] [address]
Anticipate discharge home, CM will continue to follow for all discharge planning needs.
[2025-09-20 19:43] VITALS: BMI 29.1
[2025-09-20 20:45] VITALS: BP 134/63
--- NOTE | 2025-09-20 20:45 | PTCARENOTE ---
Pt arrived onto floor via stretcher. Pt AAOx3 and able to ambulate into room without assistance. Pt with no complaints of pain or SOB at this time. Pt oriented to room and call lopez; will continue to monitor
[2025-09-20] MEDS: PEPCID 20 MG PO (21:39)
[2025-09-20] MEDS: LOVENOX 40 MG SC (21:39)
[2025-09-20 21:49] LABS: Glucose - Point of Care 180 mg/dl (70-99)
[2025-09-20 22:24] LABS: Troponin I < 0.012 ng/ml
[2025-09-20 23:44] VITALS: BP 140/65
[2025-09-21 03:07] VITALS: BP 132/44
[2025-09-21 05:47] LABS: Hematocrit 36.5 % (39.0-52.0); Hemoglobin 12.1 g/dL (13.0-18.0); Mean Corp Hgb Conc. 33.2 g/dL (33.0-37.0); Mean Corpuscular Volume 88.0 fL (80.0-94.0); Platelet Count 130 10^3/uL (130-400); Red Cell Dist. Width 13.5 % (11.5-14.5)
[2025-09-21 05:58] LABS: Blood Urea Nitrogen 14 mg/dl (9-20); Calcium 9.2 mg/dl (8.4-10.2); Carbon Dioxide 21 mmol/L (22-30); Chloride 109 mmol/L (98-107); Estimated Creatinine Clearance 99 ml/min; Glucose 140 mg/dl (70-99); HDL Cholesterol 38 mg/dl; LDL Cholesterol, Calculated 64 mg/dl; Potassium 4.3 mmol/L (3.5-5.1); Sodium 139 mmol/L (135-145); Very Low Density Lipoprotein 28 mg/dl (0-30); eGFR > 60.00
[2025-09-21 06:08] LABS: Troponin I < 0.012 ng/ml
[2025-09-21 07:00] VITALS: BP 146/87
[2025-09-21 07:35] LABS: Glucose - Point of Care 137 mg/dl (70-99)
[2025-09-21] MEDS: NORVASC 2.5 MG PO (08:03)
[2025-09-21] MEDS: TOPROL XL 25 MG PO (08:03)
[2025-09-21] MEDS: IMDUR (EXTENDED RELEASE) 30 MG PO (08:03)
[2025-09-21] MEDS: ASPIR LOW (ENTERIC COATED) 81 MG PO (08:03)
[2025-09-21] MEDS: PEPCID 20 MG PO (08:04)
[2025-09-21] MEDS: LIPITOR 40 MG PO (08:04)
[2025-09-21] MEDS: PLAVIX 75 MG PO (08:04)
[2025-09-21] MEDS: ZESTRIL 10 MG PO (08:04)
[2025-09-21] MEDS: TRICOR 145 MG PO (08:04)
[2025-09-21 09:37] LABS: Glycohemoglobin (HgbA1c) 6.7 % (4.0-5.9)
[2025-09-21 09:42] VITALS: BP 160/86; PULSE 82; O2SAT 97
--- NOTE | 2025-09-21 09:46 | PTOTSP ---
Speech Therapy Assessment
Oral/pharyngeal swallow deemed within functional limits without overt signs of aspiration.
Expressive/receptive language also grossly wfl. Spoke with son who agreed with patient that patient's language is at baseline. Provided verbal/written information on high level cognitive/communication deficits following stroke, and outpatient
services for to address these issues if needed.
Recommend
1. Continue regular solids and thin liquids.
2. If patient notices difficulty in areas of high level cognitive communication, consider comprehensive outpt assessment. Patient provided with education on such.
No further skilled ST at this time.
--- NOTE | 2025-09-21 09:52 | PTOTSP ---
Patient demonstrates safe and independent mobility, no skilled physical therapy needs at this time.
--- NOTE | 2025-09-21 10:08 | W.PN.HOSP.TC ---
Addendum entered and electronically signed by Quintin Cuevas MD 09/21/25 15:40:
MRI brain: No acute intracranial abnormality noted. Sequelae of minimal chronic small vessel ischemic disease.
As per discussion with neurology the diagnosis is TIA and the patient will be discharged on dual antiplatelet therapy for 21 days.
Total time spent on d/c = 37 min. This included today's physical exam, progress note, review of laboratory and diagnostic data, preparation of discharge documents and prescriptions, and discussions about the pt's hospital course and discharge plan
with the patient and other manager of medical involved in the patient's care.
Original Note:
Today's Communication/Plan
-
see plan
Assessment / Plan
Assessment / Plan
Gen: NAD, AAOx3.
Eyes: EOMI, PERRLA, no scleral icterus.
Neck: supple.
CV: remains RRR, +S1/S2, no m/r/g.
Resp: CTAB anteriorly, no rales, wheezes, or rhonchi.
Abd: +BS, soft, NT, ND
Skin: No rashes.
Neuro: remains CN 2-12 intact, non-focal.
Psych: Normal mood and affect.
CT brain: No acute intracranial abnormality noted.
CTA head/neck: Cervical carotid calcified plaque without associated hemodynamically significant stenosis, occlusion, or dissection. The cervical vertebral arteries are patent. Cavernous ICA calcified plaque. No [place] region aneurysm or
stenosis. No cerebral artery aneurysm, significant plaque, stenosis, thrombus, or occlusion.
Stroke-like symptoms:
-Presented with dizziness and visual changes, resolved, no TNK given
-neuro saw in consultation and will follow
-imaging above
-tele (read by me) without afib/flutter
-LDL 67
-check MRI brain
-cont ASA/statin/Plavix
Chest pain:
-reported sharp, sternal CP, atypical
-ECG on admission without acute ischemic changes (read by me), SR @ 82
-trops NEG x 2
-monitor on tele
-doubt ACS with NEG trops, nonischemic ECG, and atypical symptoms
Other problems:
DM2: a1c 6/7%, holding home metformin/Glipizide, SSI/accuchecks/diabetic diet
Essential HTN: cont BB/Imdur
CAD: cont ASA/statin/BB
FULL/Lovenox
Dispo: d/c home later today after MRI brain.
Anticipated Discharge: Today
Subjective/Interval History
-
Date of Service: September 21, 2025
No new complaints.
Objective Data
-
Labs:
Laboratory Results
09/21/25
04:56
WBC 4.4 L
Hgb 12.1 L
Hct 36.5 L
Plt Count 130
Sodium 139
Potassium 4.3
Chloride 109 H
Carbon Dioxide 21 L
BUN 14
Creatinine 0.7
Glucose 140 H
Calcium 9.2
Vital Signs:
Vital Signs
Temp Pulse Resp BP Pulse Ox
97.9 F 72 14 146/74 98
09/21/25 07:00 09/21/25 08:04 09/21/25 07:00 09/21/25 08:04 09/21/25 07:00
I&O
09/20/25 09/21/25 09/22/25
06:59 06:59 06:59
Intake Total 240 / 240
Balance 240 / 240
[2025-09-21 11:00] VITALS: BP 108/66
[2025-09-21 11:41] LABS: Glucose - Point of Care 131 mg/dl (70-99)
[2025-09-21 11:51] LABS: Troponin I < 0.012 ng/ml
--- NOTE | 2025-09-21 15:43 | W.DCSUMMARY ---
Discharge Summary
Discharge Data
Date of Admission: 09/20/25
Date of Discharge: 09/21/25
-
Pending Results: No
Hospital Course
Primary diagnoses:
Transient ischemic attack
Noncardiac chest pain
Secondary diagnoses:
Type 2 diabetes mellitus
Essential hypertension
Coronary artery disease
Consults:
Neurology
Imaging:
CT brain: No acute intracranial abnormality noted.
CTA head/neck: Cervical carotid calcified plaque without associated hemodynamically significant stenosis, occlusion, or dissection. The cervical vertebral arteries are patent. Cavernous ICA calcified plaque. No [place] region aneurysm or
stenosis. No cerebral artery aneurysm, significant plaque, stenosis, thrombus, or occlusion.
MRI brain: No acute intracranial abnormality noted. Sequelae of minimal chronic small vessel ischemic disease.
69-year-old male presenting with multiple chief complaints including diplopia, lightheadedness, lateral deviation of the left eye as outlined in the H&P done on admission. Hospital course per problem list:
Acute transient ischemic attack: The patient presented with dizziness and visual changes, resolved, no TNK given. Imaging above. The patient's LDL was 67. He was seen in consultation by neurology. It was recommended the patient have dual
antiplatelet therapy for 21 days. Telemetry did not show atrial fibrillation or flutter.
Noncardiac chest pain: This was reported as sharp, sternal CP, atypical. ECG on admission without acute ischemic changes (read by me), SR @ 82. Troponins were negative x 4. I doubt ACS with NEG trops, nonischemic ECG, and atypical symptoms.
Discharge Plan
-
Patient Disposition: Home (Routine Discharge)
Discharge Diagnosis/Procedures: Transient ischemic attack
Condition: Good
Diet: Diabetic, Carb Controlled
Activity: As tolerated
Driving Restrictions: As prior to admission
Referrals:
Edwar Luther MD [Active, Neurology] - in four to six weeks
Nikki Renee CRNP [Family Provider] - in less than 1 week
Prescriptions:
New
clopidogrel 75 mg Tablet
75 mg PO DAILY Qty: 19 0RF
Continued
aspirin 81 MG tablet,delayed release (DR/EC)
81 mg PO Daily
metformin 1,000 MG tablet
1,000 mg PO BID
fenofibrate nanocrystallized 145 MG tablet
145 mg PO DAILY Qty: 30 1RF
lisinopril 10 MG tablet
10 mg PO DAILY Qty: 30 1RF
isosorbide mononitrate 30 mg Tablet Extended Release 24 Hr
30 mg PO DAILY
amlodipine 2.5 mg Tablet
2.5 mg PO DAILY
famotidine 20 mg Tablet
20 mg PO BID
glipizide 5 mg Tablet
5 mg PO BID
atorvastatin 40 MG tablet
40 mg PO DAILY
metoprolol succinate 25 MG tablet extended release 24 hr
25 mg PO DAILY
ascorbic acid (vitamin C) [Vitamin C] 1,000 mg Tablet
1,000 mg PO DAILY
Discharge Orders:
Discharge Patient (As Directed); Ordered 09/21/25
Ordered By: Quintin Cuevas
Discharge Date and Time
Print Language: LATVIAN
--- NOTE | 2025-09-21 16:07 | PTCARENOTE ---
Patient for discharge to home. Discharge instructions and medications reviewed with patient's son, Juan J. IV removed. Tele removed. All belongings accounted for upon discharge.
--- NOTE | 2025-09-21 16:29 | CM ---
Discharged to home by nursing
== END 2025-09-21 16:27 | disposition home or self-care (01) ==
LOC: 4 WEST ACU 17:26
PROVIDERS: ADMITTING PHYSICIAN Internal Medicine; CONSULT PHYSICIAN Psychiatry & Neurology Neurology; EMERGENCY PHYSICIAN Emergency Medicine; FAMILY PHYSICIAN Nurse Practitioner Family
DX: Z79.899 Other long term (current) drug therapy (principal); Z79.82 Long term (current) use of aspirin; H51.8 Other specified disorders of binocular movement; E11.9 Type 2 diabetes mellitus without complications; I10 Essential (primary) hypertension; I25.10 Atherosclerotic heart disease of native coronary artery without angina pectoris; R07.2 Precordial pain; G45.9 Transient cerebral ischemic attack, unspecified; Z79.02 Long term (current) use of antithrombotics/antiplatelets
CPT/HCPCS: 70450; 70496; 70498; 70551; 80048; 80053; 80061; 82962; 83036; 84484; 85025; 85027; 92610; 93005; 97162; 99291; G0378; Q9967